=== PATIENT | female | born 1985 | race Caucasian/White ===

== ENCOUNTER → 2019-02-14 | Outpatient (CLI) | payer BC ==
[~2019-02-14] MED LIST: OMEG92TA; PREN-127 PO; RHO(150015 IM
[2019-02-14 08:27] LABS: PLATELET COUNT, AUTOMATED 290 K/uL (150-450)
== END ==
LOC: LAB 08:06
DX: E03.9 Hypothyroidism, unspecified (principal)
CPT/HCPCS: 36415; 82040; 82247; 82310; 82374; 82435; 82565; 82947; 84075; 84132; 84155; 84295; 84436; 84439; 84443; 84450; 84460; 84480; 84481; 84520; 85025

== ENCOUNTER → 2019-04-03 | Outpatient (CLI) | payer BC ==
[~2019-04-03] MED LIST changes: +LEVO25TA57 PO; +LEVO50TA80 PO; +THYR32.517 PO
== END ==
LOC: LAB 12:38
PROVIDERS: ATTEND Advanced Practice Midwife
DX: O99.283 Endocrine, nutritional and metabolic diseases complicating pregnancy, third trimester (principal)
CPT/HCPCS: 36415; 84436; 84439; 84443; 84480; 84481

== ENCOUNTER → 2019-04-20 | Outpatient (CLI) | payer BC ==
[~2019-04-20] MED LIST changes: +BLOO1STR16 MC; +INSU100I5 SC; +NEED-498 MC; +NPH,100I SUBQ
== END ==
LOC: RAD 13:37
PROVIDERS: ATTEND Obstetrics & Gynecology
DX: O24.419 Gestational diabetes mellitus in pregnancy, unspecified control (principal); O09.90 Supervision of high risk pregnancy, unspecified, unspecified trimester

== ENCOUNTER → 2019-04-27 | Outpatient (CLI) | payer BC | LOC: LAB 09:23 | PROVIDERS: ATTEND Obstetrics & Gynecology | DX: Z36.85 Encounter for antenatal screening for Streptococcus B (principal) | CPT/HCPCS: 87081 ==

== ENCOUNTER → 2019-04-27 | Outpatient (CLI) | payer BC ==
--- NOTE | 2019-04-27 11:28 | RADIOLOGY IMAGING REPORT ---
FACILITY: [facility] [place] PATIENT NAME: Teagan Oquendo : 1985 MR: [id number] V: [id number] EXAM DATE: ORDERING PHYSICIAN: ANNABELLE NARVAEZ TECHNOLOGIST: Location: [facility] Patient: Teagan Oquendo : 1985 Visit/Account:[id number] Date of Sevice: 04/27/2019 Exam type: [facility] OB LIIMITED History: GDM Comparison: April 20, 2019. Findings: There is a single fetus in cephalic presentation. Gestational age by LMP is 36 weeks and four days. The estimated due date by LMP is 05/21/2019 The placenta is anterior without previa. heart rate is 153 bpm MATTHEW measures 18.56 cm. The largest pocket is 5.75 cm IMPRESSION: 1. Single viable fetus. Presentation with an estimated gestational age by LMP of 36 weeks and four days. The MATTHEW measures 18.56 cm with the largest pocket measuring 5.75 cm Report Dictated By: Leticia Peter MD at 04/27/2019 11:16 AM Report E-Signed By: Leticia Peter MD at 04/27/2019 11:19 AM WSN:[email or web address]
== END ==
LOC: RAD 08:59
PROVIDERS: ATTEND Obstetrics & Gynecology
DX: O24.419 Gestational diabetes mellitus in pregnancy, unspecified control (principal); O09.90 Supervision of high risk pregnancy, unspecified, unspecified trimester

== ENCOUNTER → 2019-05-01 | Outpatient (CLI) | payer BC | LOC: LAB 09:34 | PROVIDERS: ATTEND Obstetrics & Gynecology | DX: L29.9 Pruritus, unspecified (principal); O09.90 Supervision of high risk pregnancy, unspecified, unspecified trimester | CPT/HCPCS: 36415; 82040; 82247; 82310; 82374; 82435; 82565; 82947; 84075; 84132; 84155; 84295; 84450; 84460; 84520 ==

== ENCOUNTER → 2019-05-04 | Outpatient (CLI) | payer BC ==
--- NOTE | 2019-05-04 14:34 | RADIOLOGY IMAGING REPORT ---
FACILITY: [facility] [place] PATIENT NAME: Teagan Oquendo : 1985 MR: [id number] V: [id number] EXAM DATE: ORDERING PHYSICIAN: ANNABELLE NARVAEZ TECHNOLOGIST: [place] [facility] [place]agan Oquendo : 1985 Visit/Account:[id number] Date of Sevice: 05/04/2019 Obstetric ultrasound HISTORY: Gestational diabetes. COMPARISON: 04/27/2019. FINDINGS: Standard transabdominal obstetric ultrasound. Uterus, cervix, and adnexa: Negative. Placenta: Unremarkable anterior placenta. anatomic survey: anatomic survey was not performed. Parameters: Biparietal diameter: 9 cm, 36 weeks, 3 days, 35th percentile Head circumference: 33 cm, 37 weeks, 4 days, 26th percentile Abdominal circumference: 34.8 cm, 38 weeks, 5 days, 90th percentile Femur length: 7.5 cm, 38 weeks, 3 days, 72nd percentile Composite gestational age based on Hadlock criteria is 37 weeks, 6 days for an estimated delivery shirley e of 05/19/2019. Estimated weight is 3425 g which is at the 75th percentile based on LMP. heart rate: 144 bpm. Amniotic fluid index (MATTHEW): 24.7 cm. Largest pocket: 9.3 cm. IMPRESSION: 1. Live intrauterine with a composite gestational age based on Hadlock criteria is 37 weeks , 6 days for an estimated delivery date of 05/19/2019. 2. The amniotic fluid index measures 24.7 cm and the largest pocket measures 9.3 cm. Report Dictated By: Robbie Brooks MD at 05/04/2019 2:15 PM Report E-Signed By: Robbie Brooks MD at 05/04/2019 2:24 PM WSN:[id number]
== END ==
LOC: RAD 12:41
PROVIDERS: ATTEND Obstetrics & Gynecology
DX: O24.419 Gestational diabetes mellitus in pregnancy, unspecified control (principal)